=== PATIENT | male | born 1985 | race Caucasian/White ===

== ENCOUNTER 2017-01-19 23:42 | Emergency (ER) | payer MEDICAID ==
[~2017-01-19] VITALS: Ht 170.2 cm; Wt 59.4 kg
[2017-01-20 01:40] VITALS: BP 115/69
== END 2017-01-20 01:40 | disposition home or self-care (01) ==
LOC: ED 23:42
DX: S50.11XA Contusion of right forearm, initial encounter (principal); Z88.5 Allergy status to narcotic agent; W22.8XXA Striking against or struck by other objects, initial encounter; Y93.89 Activity, other specified; Y99.8 Other external cause status; Y92.89 Other specified places as the place of occurrence of the external cause
CPT/HCPCS: J1885

== ENCOUNTER 2017-03-02 20:33 | Emergency (ER) | payer MEDICAID ==
[~2017-03-02] VITALS: Ht 170.2 cm; Wt 62.6 kg
[2017-03-02 20:40] VITALS: Ht 170.2 cm; Wt 62.6 kg
[2017-03-03 01:04] VITALS: BP 114/64
== END 2017-03-03 01:04 | disposition home or self-care (01) ==
LOC: ED 20:33
DX: J18.9 Pneumonia, unspecified organism (principal); Z88.6 Allergy status to analgesic agent
CPT/HCPCS: J1885; J2270; Q0092

== ENCOUNTER 2017-03-04 19:16 | Emergency (ER) | payer MEDICAID ==
[~2017-03-04] VITALS: Ht 170.2 cm; Wt 58.0 kg
[2017-03-04 19:22] VITALS: Ht 170.2 cm; Wt 58.0 kg
[2017-03-05 01:13] VITALS: BP 134/63
== END 2017-03-05 01:13 | disposition home or self-care (01) ==
LOC: ED 19:16
DX: J18.9 Pneumonia, unspecified organism (principal); Z88.5 Allergy status to narcotic agent
CPT/HCPCS: J0456; J0696; J1885; J2270; J2405; J7050; Q0092